=== PATIENT | female | born 1950 | race Caucasian/White ===

== ENCOUNTER 2018-02-19 17:19 | Emergency (ER) | payer MEDICARE, BC ==
[~2018-02-19] VITALS: Ht 165.1 cm; Wt 57.2 kg
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
--- NOTE | 2018-02-19 17:45 | NUR ---
[facility] EMT IS AT THE BEDSIDE. WOUND CARE IN PROGRESS.
--- NOTE | 2018-02-19 17:47 | NUR ---
PT LEFT FOR CT VIA GURNEY.
--- NOTE | 2018-02-19 17:47 | NUR ---
WOUND CARE HELD
--- NOTE | 2018-02-19 18:00 | NUR ---
PT RETURNED FROM CT.
--- NOTE | 2018-02-19 18:13 | NUR ---
WOUND CARE FINISHED.
[2018-02-19 19:03] VITALS: BP 148/76
== END 2018-02-19 19:04 | disposition home or self-care (01) ==
LOC: ER 17:22
DX: S01.01XA Laceration without foreign body of scalp, initial encounter (principal); S19.80XA Other specified injuries of unspecified part of neck, initial encounter; F17.210 Nicotine dependence, cigarettes, uncomplicated; Z85.3 Personal history of malignant neoplasm of breast; Z60.2 Problems related to living alone; V49.49XA Driver injured in collision with other motor vehicles in traffic accident, initial encounter; Y93.89 Activity, other specified; Y92.413 State road as the place of occurrence of the external cause; Y99.8 Other external cause status
CPT/HCPCS: 12001; 70450; 72125; 99284; 99406; A4606; A6402; A6403; Z7610

== ENCOUNTER 2018-02-22 13:33 | Emergency (ER) | payer MEDICARE, BC ==
[~2018-02-22] VITALS: Ht 162.6 cm; Wt 61.2 kg
[2018-02-22 13:38] VITALS: BP 116/72
== END 2018-02-22 14:24 | disposition home or self-care (01) ==
LOC: ER 13:38
DX: S01.01XD Laceration without foreign body of scalp, subsequent encounter (principal); F17.290 Nicotine dependence, other tobacco product, uncomplicated; Z85.3 Personal history of malignant neoplasm of breast; Z60.2 Problems related to living alone; X58.XXXD Exposure to other specified factors, subsequent encounter
CPT/HCPCS: A4606; Z7610